=== PATIENT | female | born 1990 | race Two or more races ===

== ENCOUNTER 2017-05-22 06:19 | Day surgery (SDC) | payer OTHER ==
[~2017-05-22] VITALS: Ht 165.1 cm; Wt 68.0 kg
[2017-05-22] VITALS (9 sets, daily range): BP systolic 106–122; BP diastolic 63–75
[~2017-05-22 06:19] MED LIST: NO MEDICATION
--- NOTE | 2017-05-22 06:28 | Anethesia Preoperative Eval ---
Anesthesia Pre-op PMH/ROS General Date of Evaluation: May 22, 2017 Time of Evaluation: 06:26 Anesthesiologist: forrest ASA Score: ASA 2 Mallampati Score Class I : Soft palate, uvula, fauces, pillars visible Class II: Soft palate, uvula, fauces visible Class III: Soft palate, base of uvula visible Class IV: Only hard plate visible Mallampati Classification: Class II Surgeon: cedric Diagnosis: diarrhea Surgical Procedure: colonoscopy Anesthesia History: none Family History: no anesthesia problems Allergies: Coded Allergies: No Known Allergies (Unverified , 05/19/17) Medications: see eMAR Past Medical History HEENT: Reports: other - nearsighted Anesthesia Pre-op Phys. Exam Physician Exam Last Vital Signs Date Time Temp Pulse Resp B/P (MAP) Pulse Ox O2 Delivery O2 Flow Rate FiO2 05/22/17 06:46 97.7 89 18 122/70 96 Room Air Constitutional: NAD Neurologic: CN 2-12 intact Cardiovascular: RRR Respiratory: CTA Gastrointestinal: S/NT/ND Airway Exam Mallampati Score: Class II MO: full Neck: supple TMD: 2fb ROM: full Teeth: intact Anesthesia Pre-op A/P Labs lmp 05/21/2017 Labs Test 05/22/17 06:30 Risk Assessment & Plan Assessment: asa2 Plan: mac Status Change Before Surgery: No Pre-Antibiotics Drug: LITZY Gaitan May 22, 2017 06:28
[2017-05-22] MEDS ORDERED: Atropine Inj 1mg/10ml Syr IV PRN (07:00)
[2017-05-22] MEDS ORDERED: DiphenhydrAMINE 50mg/ml Inj IVP PRN (07:00)
[2017-05-22] MEDS ORDERED: Propofol 200mg/20ml IV ONE (07:00)
[2017-05-22] MEDS ORDERED: Midazolam 2mg/2ml Inj IVP PRN (07:00)
[2017-05-22] MEDS ORDERED: Lidocaine 1% MPF 10mg/ml 5ml ONE (07:00)
[2017-05-22] MEDS ORDERED: LR 1000ml ONE (07:00)
[2017-05-22] MEDS ORDERED: fentaNYL 100 mcg/2 mL IV PRN (07:00)
--- NOTE | 2017-05-22 07:09 | Short Stay Surgery H&P ---
History of Present Illness History of Present Illness Chief Complaint diarrhea, see typed H&P for details HPI Velia Coombs is a 26 year old female who was admitted on for Diarrhea Patient History Allergies: Coded Allergies: No Known Allergies (Unverified , 05/19/17) PAST MEDICAL HISTORY: Past Surgeries: Social History: Medication History Miscellaneous Medications [No Medication ], (Reported) Physical Exam Vital Signs Last Vital Signs Date Time Temp Pulse Resp B/P (MAP) Pulse Ox O2 Delivery O2 Flow Rate FiO2 05/22/17 06:46 97.7 89 18 122/70 96 Room Air Labs Laboratory Tests Test 05/22/17 06:30 Urine HCG, Qualitative Negative Plan Attestation Are the patient's medical conditions optimized for surgery? ALEX NICHOLAS May 22, 2017 07:09
--- NOTE | 2017-05-22 07:10 | Pre-Procedure Note/Attestation ---
Pre-Procedure Note/Attestation Complete Prior to Procedure Planned Procedure: not applicable Procedure Narrative: colon Indications for Procedure Pre-Operative Diagnosis: diarrhea Attestation I attest that I discussed the nature of the procedure; its benefits; risks and complications; and alternatives (and the risks and benefits of such alternatives ), prior to the procedure, with the patient (or the patient's legal technical sales representatives). I attest that, if there was a reasonable possibility of needing a blood transfusion, the patient (or the patient's legal technical sales representatives) was given the [facility] standardized written summary, pursuant to the Devante [place]cl[place] Blood Safety Act ([place] Health and Safety Code # 1645, as amended). I attest that I re-evaluated the patient just prior to the surgery and that there has been no change in the patient's H&P, except as documented below: ALEX NICHOLAS May 22, 2017 07:09
--- NOTE | 2017-05-22 09:19 | Endoscopy Procedure Note ---
Endoscopy Procedure Note Indication for Procedure: diarrhea Procedures Performed: colonoscopy Operative Findings/Diagnosis: dim TV polyp, nl colon and 10 cm TI Specimen: yes Pt Tolerated Procedure Well: Yes Estimated Blood Loss: none Anesthesiologist: Chin Webster Anesthesia: MAC, moderate sedation Medication Given: see anesthesia record Implant(s) used?: No 50 yrs or older w/o bx or poly: Not Applicable 10yrs. F/U not recommended: Not Applicable If not recommended, why?: ALEX NICHOLAS May 22, 2017 09:19
--- NOTE | 2017-05-22 09:20 | Brief Operative Note ---
Immediate Post Operative Note Operative Note Chief Complaint: diarrhea Pre-op Diagnosis: diarrhea Procedure: colon Bx Post-op Diagnosis: dim TV polyp Surgeon: cedric Anesthesiologist: see report Anesthesia: MAC Specimen: yes Complications: none Condition: stable Fluids: recorded Estimated Blood Loss: none Drains: none Implant(s) used?: No ALEX NICHOLAS May 22, 2017 09:20
--- NOTE | 2017-05-22 12:20 | Immediate Post-Op Evaluation ---
Immediate Post-Op Evalulation Immediate Post-Op Evalulation Procedure: colonoscopy Date of Evaluation: May 22, 2017 Time of Evaluation: 08:15 IV Fluids: 425ml 0.9ns Blood Products: none Estimated Blood Loss: negligible Blood Pressure Systolic: 108 Blood Pressure Diastolic: 68 Pulse Rate: 64 Respiratory Rate: 18 O2 Sat by Pulse Oximetry: 99 Temperature (Fahrenheit): 97.6 Pain Score (1-10): 0 Nausea: No Vomiting: No Complications none Patient Status: awake, reacts, patent Hydration Status: adequate Drug: LITZY Gaitan May 22, 2017 12:20
--- NOTE | 2017-05-22 12:22 | 48 Hour Post Anesthesia Eval ---
Post Anesthesia Evaluation Procedure: colonoscopy Date of Evaluation: May 22, 2017 Time of Evaluation: 08:17 Blood Pressure Systolic: 106 0: 63 Pulse Rate: 68 Respiratory Rate: 18 Temperature (Fahrenheit): 97.6 O2 Sat by Pulse Oximetry: 99 Airway: patent Nausea: No Vomiting: No Pain Intensity: 0 Hydration Status: adequate Cardiopulmonary Status: stable Mental Status/LOC: patient returned to baseline Post-Anesthesia Complications: none Follow-up care needed: N/A LITZY BARR May 22, 2017 12:22
--- NOTE | 2017-05-22 18:30 | Operative Note - Dictated ---
DATE OF OPERATION: 05/22/2017 PROCEDURE: Colonoscopy with biopsy. SURGEON: Ana Petersen M.D. ANESTHESIA: Please see the separate anesthesiologist notes for details. PRE-ENDOSCOPIC DIAGNOSIS: Long-term diarrhea, rule out colitis. POST-ENDOSCOPIC DIAGNOSES: 1. Normal terminal ileum to 10 cm examination. 2. Diminutive polyp in the transverse colon, status post biopsy removal. 3. No evidence of colonic mucosal pathology by visual inspection, status post random biopsy from the right colon, left colon, and rectum. DESCRIPTION OF PROCEDURE: The procedure, its risks, indications, alternatives, and possible complications including, but not limited to bleeding, infection, perforation, , and anesthesia complications were explained to the patient and informed consent was obtained. The patient was then sedated. A diagnostic colonoscope was introduced into the rectum and advanced to the terminal ileum without difficulty. The terminal ileum was intubated for about 10 cm. The colonoscope was then gradually withdrawn and the mucosa was examined carefully. Examination of colonic mucosa as listed above. The colonoscope was removed and the patient was sent to recovery in good condition. COMPLICATIONS: None. RECOMMENDATIONS: 1. Follow up biopsy results to rule out evidence of microscopic colitis and inflammatory bowel disease. 2. Resume oral diet. 3. Outpatient followup. Ana Petersen M.D. DR: TAB JOB#: [id number] CC: Ana Petersen M.D.; Fax#: [phone]
== END 2017-05-22 09:25 | disposition home or self-care (01) ==
LOC: GAS 06:19
DX: K63.5 Polyp of colon (principal); D12.3 Benign neoplasm of transverse colon
CPT/HCPCS: 45380; 81025; J2704; J7120; 94003; 94150